=== PATIENT | female | born 1925 ===

== ENCOUNTER 2016-11-29 05:21 | Day surgery (SDC) | payer MEDICARE, MEDICAID ==
[2016-11-29] VITALS (14 sets, daily range): BP systolic 63–189; BP diastolic 40–87
[~2016-11-29] VITALS: Ht 160 cm; Wt 59.4 kg
[2016-11-29] MEDS ORDERED: celeBREX 200mg Cap **SURGERY PATIENTS ONLY ORAL ONE (06:00)
[2016-11-29] MEDS ORDERED: oxyCONTIN 20mg tab ORAL ONE (06:00)
[2016-11-29] MEDS ORDERED: CLOPIDOGREL75 MG ORAL (06:12)
[2016-11-29] MEDS ORDERED: LOSARTAN-HCTZ1 EAC2 ORAL (06:12)
[2016-11-29] MEDS ORDERED: AMLODIPINE BESYL5 MG ORAL (06:12)
[2016-11-29] MEDS ORDERED: PROPRANOLOL HCL20 MG ORAL (06:12)
[2016-11-29] MEDS ORDERED: GLIPIZIDE5 MG ORAL (06:12)
[2016-11-29] MEDS ORDERED: SIMVASTATIN40 MG ORAL (06:12)
[2016-11-29] MEDS ORDERED: METFORMIN HCL500 M1 ORAL (06:12)
[2016-11-29] MEDS ORDERED: NORCO 5-325 TA1 EAC1 ORAL (06:12)
[2016-11-29] MEDS ORDERED: ASPIRIN81 MG ORAL (06:12)
[2016-11-29] MEDS ORDERED: AMITRIPTYLINE100 MG ORAL (06:12)
[2016-11-29] MEDS ORDERED: Ropivacaine 5mg/ml Vial 20ml INJ ONE ×2 (06:25→06:40)
[2016-11-29] MEDS ORDERED: Bacitracin 50000 Units Vial ONE (06:39)
[2016-11-29] MEDS ORDERED: Bupivacaine w/Epi 0.5% 30ml Vial INJ ONE (06:39)
[2016-11-29] MEDS ORDERED: LR 1000ml 1,000 ML IVLG SCH (06:43)
--- NOTE | 2016-11-29 06:43 | Anethesia Preoperative Eval ---
Anesthesia Pre-op PMH/ROS General Date of Evaluation: Nov 29, 2016 Time of Evaluation: 07:16 Anesthesiologist: Maurice ASA Score: ASA 3 Mallampati Score Class I : Soft palate, uvula, fauces, pillars visible Class II: Soft palate, uvula, fauces visible Class III: Soft palate, base of uvula visible Class IV: Only hard plate visible Mallampati Classification: Class II Surgeon: Jono Diagnosis: L Distal Radius Fx Surgical Procedure: ORIF L Distal Radius Anesthesia History: none Family History: no anesthesia problems Allergies: Coded Allergies: No Known Allergies (Unverified , 11/28/16) Medications: see eMAR Past Medical History Cardiovascular: Reports: HTN, other - HL Gastrointestinal/Genitourinary: Reports: GERD Endocrine: Reports: DM HEENT: Reports: cataract (L), cataract (R) PSxH Narrative: MAJO, B Cat Ext IOL Anesthesia Pre-op Phys. Exam Physician Exam Last Vital Signs Date Time Temp Pulse Resp B/P Pulse Ox O2 Delivery O2 Flow Rate FiO2 11/29/16 06:04 97.0 70 18 179/70 96 Room Air Constitutional: NAD Neurologic: CN 2-12 intact Cardiovascular: RRR Respiratory: CTA Gastrointestinal: S/NT/ND Airway Exam Mallampati Score: Class II MO: limited ROM: limited Teeth: missing Anesthesia Pre-op A/P Risk Assessment & Plan Assessment: ASA 3 Plan: GA, L Supraclavicular Block, BIS Status Change Before Surgery: No Pre-Antibiotics Dru Gram Ancef IV Given Within 1 Hr of Incision: Yes Time Given: 07:32 Janak Richards MD Nov 29, 2016 06:43
[2016-11-29] MEDS ORDERED: Hydromorphone 0.5mg/0.5ml inj IVP PRN (06:45)
[2016-11-29] MEDS ORDERED: fentaNYL 100 mcg/2 mL IV PRN (06:45)
[2016-11-29] MEDS ORDERED: Atropine Inj 1mg/10ml Syr IV PRN (06:45)
[2016-11-29] MEDS ORDERED: Ketorolac 60mg Inj IV PRN (06:45)
[2016-11-29] MEDS ORDERED: LORazepam Inj 2mg/ml 1ml IV PRN (06:45)
[2016-11-29] MEDS ORDERED: Oxycodone/Acetaminophen 5-325 ORAL PRN (06:45)
[2016-11-29] MEDS ORDERED: Meperidine 25mg/0.5ml Inj IV PRN (06:45)
[2016-11-29] MEDS ORDERED: Ketorolac 30mg Inj IV PRN (06:45)
[2016-11-29] MEDS ORDERED: Midazolam 2mg/2ml Inj IVP PRN (06:45)
[2016-11-29] MEDS ORDERED: Metoclopramide 10mg/2ml Inj IVP PRN (06:45)
[2016-11-29] MEDS ORDERED: DiphenhydrAMINE 50mg/ml Inj IVP PRN (06:45)
[2016-11-29] MEDS ORDERED: Norco 7.5mg/325mg tab ORAL PRN (06:45)
[2016-11-29] MEDS ORDERED: Norco 5mg/325mg tab ORAL PRN ×2 (06:45→07:30)
[2016-11-29] MEDS ORDERED: Clindamycin 600mg 50 ML IVPB ONE (07:00)
--- NOTE | 2016-11-29 07:28 | Pre-Procedure Note/Attestation ---
Pre-Procedure Note/Attestation Complete Prior to Procedure Planned Procedure: left Procedure Narrative: wrist orif Indications for Procedure Pre-Operative Diagnosis: left wrist fracture Attestation I attest that I discussed the nature of the procedure; its benefits; risks and complications; and alternatives (and the risks and benefits of such alternatives ), prior to the procedure, with the patient (or the patient's legal sales solutions representative). I attest that, if there was a reasonable possibility of needing a blood transfusion, the patient (or the patient's legal sales solutions representative) was given the [facility] standardized written summary, pursuant to the Edward Juventino Blood Safety Act ([place] Health and Safety Code # 1645, as amended). I attest that I re-evaluated the patient just prior to the surgery and that there has been no change in the patient's H&P, except as documented below: FRIEDA COATES Nov 29, 2016 07:28
--- NOTE | 2016-11-29 07:29 | Operative Note - PDOC ---
Operative Note Operative Note Pre-op Diagnosis: left wrist fracture Procedure: left wrist orif Operative Findings: consistent w/pre-op dx studies Anesthesia: general Specimen: none Condition: stable Estimated Blood Loss: minimal Implant(s) used?: Yes FRIEDA COATES Nov 29, 2016 07:29
[2016-11-29] MEDS ORDERED: D5 1/2NS 1,000 ML IV SCH (07:30)
[2016-11-29] MEDS ORDERED: Morphine Sulfate 2mg/ml Inj IVP PRN (07:30)
[2016-11-29] MEDS ORDERED: Lidocaine 1% MPF 10mg/ml 5ml ONE (07:30)
[2016-11-29] MEDS ORDERED: Midazolam 2mg/2ml Inj ONE (07:30)
[2016-11-29] MEDS ORDERED: Sterile Water Irrig 1000ml IRRIG ONE (07:30)
[2016-11-29] MEDS ORDERED: LR 1000ml ONE (07:30)
[2016-11-29] MEDS ORDERED: Alfentanil 2ml Inj ONE (07:30)
[2016-11-29] MEDS ORDERED: Propofol 10mg/ml 20ml IV ONE (07:30)
--- NOTE | 2016-11-29 08:36 | Immediate Post-Op Evaluation ---
Immediate Post-Op Evalulation Immediate Post-Op Evalulation Procedure: ORIF L Distal Radius Date of Evaluation: Nov 29, 2016 Time of Evaluation: 08:45 IV Fluids: 1000 LR Blood Products: 0 Estimated Blood Loss: 8 Urinary Output: 0 Blood Pressure Systolic: 82 Blood Pressure Diastolic: 45 Pulse Rate: 71 Respiratory Rate: 16 O2 Sat by Pulse Oximetry: 100 Temperature (Fahrenheit): 97 Pain Score (1-10): 0 Nausea: No Vomiting: No Complications 0 Patient Status: awake, reacts, patent, extubated, none Hydration Status: adequate Dru Gram Ancef IV Given Within 1 Hr of Incision: Yes Time Given: 08:32 Janak Richards MD Nov 29, 2016 08:36
--- NOTE | 2016-11-29 11:40 | Diagnostic Imaging Report ---
Indication: Wrist fracture, trauma, intraoperative Technique: Digital intraoperative images Comparison: None Findings: Intraoperative images document surgical repair with sideplate and screws of distal radial fracture. There appears to be an ununited ulnar styloid fracture as well. Impression: Intraoperative imaging, as described
--- NOTE | 2016-11-29 11:45 | Operative Note - Dictated ---
DATE: 11/29/2016 PREOPERATIVE DIAGNOSIS: Left intra-articular distal radius fracture. POSTOPERATIVE DIAGNOSIS: Left intra-articular distal radius fracture. PROCEDURE: Open reduction and internal fixation left distal radius fracture (three fragments intra-articular) with plate and screw fixation. SURGEON: Cooper De La Cruz M.D. ANESTHESIA: General with axillary block. INDICATION FOR PROCEDURE: The patient is a pleasant female who was diagnosed with displaced distal radius fracture nad therefore operative fixation was recommended. Risks, limitations, expectations, and complication of the procedure were discussed in detail. All questions were addressed. DESCRIPTION OF PROCEDURE: An informed consent was obtained. The patient was taken to the operating room and placed under general anesthesia. The left arm was prepped and draped in a sterile manner. Time-out was performed. The anterior timothy voloar approach was performed. Distal wrist was well visualized and a standard [employer] plate was selected. K-wire was then placed along with shaft screw was then placed. Once that was completed, multiple distal PEG screws were then placed as well. Once the distal fixation was secured, two additional proximal shaft screws were then placed. Final x-ray showed implant in good reduction of the fracture fragment and good implant placement. At this point, the skin was approximated with 3-0 Vicryl, 3-0 Monocryl sutures. A posterior splint was placed. The patient was awoken and taken to the recovery room with stable vital signs. ESTIMATED BLOOD LOSS: Minimal. COMPLICATIONS: None. SPECIMENS: None. IMPLANT: Include [employer] Hand innovation volar plate with multiple screws. Cooper De La Cruz M.D. DR: Artur JOB#: [id number] CC: MARGARET
== END 2016-11-29 13:20 | disposition home or self-care (01) ==
LOC: SUR 05:21
DX: S52.572A Other intraarticular fracture of lower end of left radius, initial encounter for closed fracture (principal); X58.XXXA Exposure to other specified factors, initial encounter; Y92.89 Other specified places as the place of occurrence of the external cause; Y99.9 Unspecified external cause status; I10 Essential (primary) hypertension; E78.5 Hyperlipidemia, unspecified; K21.9 Gastro-esophageal reflux disease without esophagitis; E11.9 Type 2 diabetes mellitus without complications; Z90.710 Acquired absence of both cervix and uterus
CPT/HCPCS: 25609; 73100; 76001; 82962; C1713; J0690; J2250; J2405; J2704; J2795; J3490; J7120; 94003; 94150